=== PATIENT | male | born 1950 | race African-American/Black ===

== ENCOUNTER 2019-08-29 12:57 | Observation (INO) ==
[2019-08-29 14:01] LABS: Basophils % 0.3 % (0.0-0.8); Eosinophils # 0.1 10*3/uL (0.0-0.87); Eosinophils % 0.8 % (0.00-10.9); Hematocrit 35.4 VOL% (42.0-52.0); Hemoglobin 11.6 GM/DL (14.0-18.0); Immature Granulocytes % 0.4 %; Immature Granulocytes Absolute 0.03 #; Lymphocytes # 1.5 10*3/uL (1.4-4.0); Lymphocytes % 20.6 % (21.2-54.2); Mean Corpuscular HGB Conc 32.8 GM/DL (32-36); Mean Corpuscular Volume 94.1 FL (87-102); Mean Platelet Volume 10.7 FL (9.6-12.0); Monocytes % 4.8 % (1.7-12.7); Neutrophils % 73.1 % (38.7-73.9); Platelet Count 282 T/CUMM (130-400); Red Blood Count 3.76 MC/CUMM (3.8-5.5); Red Cell Distribution Width 11.7 % (9.3-17.3); White Blood Count 7.2 T/CUMM (4-12)
[2019-08-29 14:10] LABS: PT Patient Result 11.1 SECS (9.6-12.2); Partial Thromboplastin Time 27.4 SECS (20.8-36.0)
[2019-08-29 14:34] LABS: Alanine Aminotransferase 14 U/L (16-61); Albumin 3.8 G/DL (3.4-5.0); Alkaline Phosphatase 73 U/L (45-117); Aspartate Amino Transferase 13 U/L (0-37); Blood Urea Nitrogen 9 MG/DL (7-18); Calcium 8.9 MG/DL (8.5-10.1); Estimated Glom Filtration Rate 114 ML/MIN; Glucose 98 MG/DL (74-106); Osmolality,Calculated 271.8 MOS/KG (273-304); Total Protein 8.2 G/DL (6.4-8.3); Troponin I < 0.015 NG/ML (0.00-0.045)
[2019-08-29 15:05] LABS: Sedimentation Rate-Westergren 48 MM/HR (0-20)
[2019-08-29] MEDS ORDERED: ACETAMINOPHEN 325 MG TABLET PO PRN (16:47)
[2019-08-29] MEDS ORDERED: ONDANSETRON 4 MG/2 ML VIAL IV PRN (16:47)
[2019-08-29] MEDS ORDERED: LABETALOL 20 MG/4 ML SYRINGE IV PRN (16:53)
[2019-08-29 17:19] LABS: Risk Ratio 2.49; VLDL CHOLESTEROL 10.8 MG/DL
[2019-08-29 17:52] LABS: Barbiturates Screen,Urine Negative (Negative); Benzodiazepines Screen,Urine Negative (Negative); Cannabinoid Screen,Urine Negative (Negative); Opiate Screen,Urine Negative (Negative); Phencyclidine Screen,Urine Negative (Negative)
[2019-08-29] MEDS: SODIUM CHLORIDE 0.9% 1,000 ML IV SCH (18:56)
[2019-08-29] MEDS: ROSUVASTATIN 20 MG TABLET PO SCH (21:03)
[2019-08-29] MEDS: POTASSIUM CHLORIDE 20 MEQ TABLET PO PRN ×2 (21:03→23:16)
[2019-08-30] MEDS: POTASSIUM CHLORIDE 20 MEQ TABLET PO PRN (01:46)
[2019-08-30] MEDS: SODIUM CHLORIDE 0.9% 1,000 ML IV SCH ×2 (05:01→20:59)
[2019-08-30 06:45] LABS: Calcium 8.8 MG/DL (8.5-10.1); Osmolality,Calculated 276.4 MOS/KG (273-304)
[2019-08-30] MEDS: ASPIRIN EC 81 MG TABLET PO SCH (08:43)
[2019-08-30] MEDS: HEPARIN DRIP 25,000 UNITS/500 ML PREMIX IV SCH (13:30)
[2019-08-30] MEDS: ROSUVASTATIN 20 MG TABLET PO SCH (20:56)
[2019-08-31 05:21] LABS: Basophils % 0.4 % (0.0-0.8); Eosinophils # 0.1 10*3/uL (0.0-0.87); Eosinophils % 1.4 % (0.00-10.9); Hematocrit 33.5 VOL% (42.0-52.0); Hemoglobin 11.2 GM/DL (14.0-18.0); Immature Granulocytes % 0.2 %; Immature Granulocytes Absolute 0.02 #; Lymphocytes # 1.8 10*3/uL (1.4-4.0); Lymphocytes % 21.5 % (21.2-54.2); Mean Corpuscular HGB Conc 33.4 GM/DL (32-36); Mean Corpuscular Volume 92.3 FL (87-102); Mean Platelet Volume 11.5 FL (9.6-12.0); Monocytes % 5.6 % (1.7-12.7); Neutrophils % 70.9 % (38.7-73.9); Platelet Count 250 T/CUMM (130-400); Red Blood Count 3.63 MC/CUMM (3.8-5.5); Red Cell Distribution Width 11.4 % (9.3-17.3); White Blood Count 8.3 T/CUMM (4-12)
[2019-08-31 05:30] LABS: Calcium 8.9 MG/DL (8.5-10.1); Osmolality,Calculated 275.5 MOS/KG (273-304)
[2019-08-31] MEDS: ASPIRIN EC 81 MG TABLET PO SCH (09:11)
[2019-08-31] MEDS: HEPARIN DRIP 25,000 UNITS/500 ML PREMIX IV SCH (18:54)
[2019-08-31] MEDS: ROSUVASTATIN 20 MG TABLET PO SCH (21:27)
[2019-09-01 05:36] LABS: Basophils % 0.5 % (0.0-0.8); Eosinophils # 0.1 10*3/uL (0.0-0.87); Eosinophils % 1.5 % (0.00-10.9); Hematocrit 34.6 VOL% (42.0-52.0); Hemoglobin 11.7 GM/DL (14.0-18.0); Immature Granulocytes % 0.3 %; Immature Granulocytes Absolute 0.02 #; Lymphocytes # 1.5 10*3/uL (1.4-4.0); Lymphocytes % 24.8 % (21.2-54.2); Mean Corpuscular HGB Conc 33.8 GM/DL (32-36); Mean Corpuscular Volume 91.5 FL (87-102); Mean Platelet Volume 11.4 FL (9.6-12.0); Monocytes % 7.2 % (1.7-12.7); Neutrophils % 65.7 % (38.7-73.9); Platelet Count 237 T/CUMM (130-400); Red Blood Count 3.78 MC/CUMM (3.8-5.5); Red Cell Distribution Width 11.2 % (9.3-17.3)
[2019-09-01 05:52] LABS: Calcium 8.9 MG/DL (8.5-10.1); Osmolality,Calculated 275.5 MOS/KG (273-304)
[2019-09-01 07:55] VITALS: BP 115/63
[2019-09-01] MEDS ORDERED: CLOPIDOGREL 75 MG TABLET PO SCH (09:00)
== END 2019-09-01 12:00 | disposition home or self-care (01) ==
LOC: N.EDINP 12:57 → N.ED 12:57 → SUATTDRO 16:47 → N.4E 17:43
PROVIDERS: ADMIT Emergency Medicine; ATTEND Internal Medicine